=== PATIENT | female | born 1965 | race Hispanic/Latino ===

== ENCOUNTER → 2020-05-17 | Day surgery (SDC) | payer OTHER ==
[~2020-05-17] MED LIST: GLUCAGON FOR INJ 1 MG VIAL ONE; HYOSCYAMINE 0.125 MG TAB ONE; LIDOCAINE HCL 2% LOCAL INJ 5 ML SDV VIAL INJ ONE; MIDAZOLAM HCL 2 MG/2 ML VIAL ONE; PROPOFOL IV EMULSION 10 MG/ML 20 ML VIAL ONE
--- NOTE | 2020-05-17 07:15 | NUR ---
SPIRITUAL CARE - Pre-Surgery Assessment: Pt in bed. Pt's at bedside. Pt reported supportive attention from family and friends. Intervention: Mis Manager provided pastoral presence, hospitality, and sympathetic listening. Acquainted pt with availability of gravity prospecting observer helper while hospitalized. Outcome: Pt expressed appreciation for visit. No need for follow up indicated at this time. [facility] Spiritual Care Department O: [phone]
[2020-05-17 09:50] VITALS: BP 97/68
--- NOTE | 2020-05-17 10:02 | Operative Report ---
DATE OF PROCEDURE: 05/17/2020 SURGEON: Joss Wood MD PROCEDURE: Colonoscopy with polypectomy and biopsies. INDICATIONS FOR COLONOSCOPY: Surveillance colonoscopy, personal history of colon polyps, crampy lower abdominal pain. MEDICATIONS: The patient was done under MAC, please see anesthesiologist's note. PROCEDURE IN DETAIL: With the patient in the left lateral decubitus position, a flexible fiberoptic Olympus colonoscope was inserted into the rectum and advanced all the way to the cecum. The sigmoid colon was traversed with some difficulty due to sharp angulation probably secondary to pelvic adhesions from her hysterectomy. The scope was then withdrawn slowly. Mucosa overlying the cecum appeared to be within normal limits as well as the mucosa overlying the ascending colon. A single polyp minute was removed per the cold biopsy forceps from the proximal transverse colon. There was a single diverticulum noted in the transverse colon. Descending appeared to be within normal limits. Sigmoid colon as mentioned previously was sharply angulated and it was suboptimally visualized. Some mild patchy inflammatory changes were noted in the rectum and biopsies were obtained. The scope was then retroflexed into the distal rectum and small internal hemorrhoids were noted, none of which was actively bleeding. The scope was then straightened out, it was subsequently withdrawn, and the patient tolerated the procedure well. IMPRESSION: 1. Transverse colon polyp, cold biopsied. 2. Diverticulosis, (diverticulum) transverse colon. 3. Sharply angulated sigmoid colon traversed with some difficulty and suboptimally visualized. 4. Proctitis, mild. 5. Internal hemorrhoids, none actively bleeding. PLAN: Follow up histology. Initiate high-fiber, low-fat diet. Initiate high-fiber supplement. Start Bentyl 10 mg one p.o. t.i.d. MiraLAX 17 g in a glass of water once daily. The patient might benefit from a followup colonoscopy in 5 years. Joss Wood MD [facility] [place]/[facility] /[id number] cc: Sonia Mathew MD
== END | disposition home or self-care (01) ==
LOC: OR 06:10
PROVIDERS: ATTEND Internal Medicine Gastroenterology
DX: K59.09 Other constipation (principal); Z86.010 Personal history of colon polyps; Z80.0 Family history of malignant neoplasm of digestive organs; Z68.24 Body mass index [BMI] 24.0-24.9, adult; R12 Heartburn; K63.5 Polyp of colon; K57.30 Diverticulosis of large intestine without perforation or abscess without bleeding; K62.89 Other specified diseases of anus and rectum; K64.8 Other hemorrhoids; N73.6 Female pelvic peritoneal adhesions (postinfective); Z98.890 Other specified postprocedural states; K21.9 Gastro-esophageal reflux disease without esophagitis; F41.9 Anxiety disorder, unspecified; E78.00 Pure hypercholesterolemia, unspecified; Z01.810 Encounter for preprocedural cardiovascular examination; Z01.812 Encounter for preprocedural laboratory examination
CPT/HCPCS: 45380; 93005; J1610; J2001; J2704; U0002; 45378; 45384; J2250